=== PATIENT | male | born 1945 | race Caucasian/White ===

== ENCOUNTER 2018-12-04 10:17 | Day surgery (SDC) | payer OTHER ==
[~2018-12-04 10:17] MED LIST: Acetaminophen TAB* 325 MG PO PRN; Buffered Lidocaine 1% SYRIN* 1 ML/SYRINGE INTRADERM ONE
[2018-12-04] MEDS ORDERED: fentaNYL* 50 MCG/ML 2 ML VIAL (100 MCG VIAL) ONE (11:27)
[2018-12-04] MEDS ORDERED: Midazolam* 1 MG/ML 2 ML VIAL (2 MG) ONE (11:27)
[2018-12-04 12:35] VITALS: BP 118/64
--- NOTE | 2018-12-04 13:27 | OP ---
DATE OF OPERATION: 12/04/18 - [facility] DATE OF : 45. SURGEON: Ed Mogran MD. SWIMMING PROFESSOR: None. ANESTHESIA: Topical with intravenous sedation. PRE-OP DIAGNOSES: Pseudoexfoliation, glaucoma, right eye; cataract, right eye. POST-OP DIAGNOSES: Pseudoexfoliation, glaucoma, right eye; cataract, right eye. OPERATIVE PROCEDURE: Cataract extraction with posterior chamber intraocular lens implant and iStent implant, right eye. COMPLICATIONS: None. BLOOD LOSS: None. DESCRIPTION OF PROCEDURE: The patient was brought to the operating room and given a drop of tetracaine and some intravenous sedation. He was prepped and draped in the usual sterile fashion for ophthalmic surgery. Attention was directed to the right eye, where a speculum was placed. Despite appropriate preoperative eye drops, it was noted that his pupil only dilated to approximately 3 mm. Furthermore, pseudoexfoliation material could be seen coating the surface of the lens capsule. A paracentesis was created at the 11 o' clock position and 0.1 cc of 1% preservative- free lidocaine was injected into the anterior chamber followed by DisCoVisc. The eye was digitally stabilized while a 2.75-mm keratome was used to create a triplanar clear corneal incision at the 9 o'clock position. A Malyugin ring was placed to open the pupil. A continuous curvilinear capsulorrhexis measuring approximately 4 mm was created with a cystotome and Utrata forceps. BSS on a cannula was used to hydrodissect the lens from the capsule. Phacoemulsification was performed in a divide and conquer technique to create 4 fragments, which were removed. Omidria had been added to the irrigating solution. The intraocular pressure measurements on the machine were lowered to avoid dislocating the natural lens. After successful removing of these fragments, cortical removal was achieved using irrigation and aspiration. An AU00T0 18.5 diopter lens was inserted into the capsular bag. Supplemental DisCoVisc was placed to deepen the anterior chamber and coat the surface of the cornea. The patient's head was rotated away from the surgeon and the microscope was rotated towards the surgeon. A gonioprism was placed on the surface of the eye. Under direct visualization, an iStent was placed in the nasal aspect of the trabecular meshwork. The iStent ironworker helper shop and the gonioprism were removed. The patient's head and the microscope returned to the neutral position. DisCoVisc was them removed from posterior to the lens. Extra DisCoVisc was placed anterior to the lens. The Malyugin ring was removed atraumatically. The remainder of the viscoelastic was removed from the eye using irrigation and aspiration. The corneal stroma was hydrated with balanced saline solution. At the end of the case, the pupil was round. The lens was centered and stable. The eye pressure appeared normal. The eye appeared watertight and the iStent was in good position. The speculum was removed and topical Maxitrol ointment was placed on the surface of the eye. The eye was closed, patched, and shielded and the patient was sent to recovery room in stable condition with postop instructions and followup appointment given. [id number] #: [id number] MTDD
[2018-12-04] MEDS ORDERED: Cyclopentolate 1% OPTH.SOL* 2 ML BTL ONE (15:28)
[2018-12-04] MEDS ORDERED: Ketorolac 0.5% OPHTH (NF) 0.5 % 5 ML BTL ONE (15:28)
[2018-12-04] MEDS ORDERED: Tetracaine 0.5% OPTH.SOL 4 ML* 1 DROP BTL ONE (15:28)
[2018-12-04] MEDS ORDERED: Phenylephr/Ketorolac 1%/0.3% OPH DROP BTL ONE (15:28)
[2018-12-04] MEDS ORDERED: Phenylephrine 2.5% OPTH.SOL* 2 ML BTL ONE (15:28)
[2018-12-04] MEDS ORDERED: Lidocaine 1%* 5 ML VIAL ONE (15:28)
[2018-12-04] MEDS ORDERED: Neomycin/Polymy/Dex OPHTH.OIN* 3.5 GM ONE (15:28)
[2018-12-04] MEDS ORDERED: Tropicamide 1% OPTH.SOL* BTL ONE (15:28)
== END 2018-12-04 12:40 | disposition home or self-care (01) ==
LOC: OREAST 10:17
PROVIDERS: ATTEND Ophthalmology
DX: H25.041 Posterior subcapsular polar age-related cataract, right eye (principal); H40.1411 Capsular glaucoma with pseudoexfoliation of lens, right eye, mild stage; E78.00 Pure hypercholesterolemia, unspecified; I10 Essential (primary) hypertension
CPT/HCPCS: A9270-GY; C1783; C9447; J2250; J3010; V2632

== ENCOUNTER 2019-05-16 11:48 | Observation (INO) | payer MEDICARE, OTHER ==
--- NOTE | 2019-05-16 12:10 | ED ---
HPI Chest Pain - HPI Summary HPI Summary: A 73 y/o male presents to [facility] with a chief complaint of chest pain since last night. He said that it started out as a 1-2/10 in severity, which remained until this morning. At triage he rated his pain as a 6/10 in severity, but now he claims that his pain has gotten better. He says that he took NTG last night and this morning, and this morning he did not feel any relief. He says that deep breaths worsens his pain. His CP does not radiate. He says that his chest has some discomfort. Pt denies any fever, sweats, chills, erythema of eyes, sore throat, SOB, cough, abdominal pain, N/V, dysuria, hematuria, myalgia, edema , rash, or dizziness. He denies a Hx of PA, but has a Hx of HTN and HLD. He reports a FHx of HTN, CVA and DM, but denies any cardiac disease, aneurysm or blood clots in the lungs. He was prescribed NTG by Dr. Severino, saying that years ago he complained about chest discomfort. He has had a stress test a few years ago and says that it was normal. He denies having a cardiac catheterization done before. - History of Current Complaint Chief Complaint: EDChestPainROMI Time Seen by Provider: 05/16/19 12:02 Hx Obtained From: Patient Onset/Duration: Started Hours Ago, Still Present Timing: Constant, Lasting Hours Initial Severity: Mild Current Severity: Moderate Pain Intensity: 6 Pain Scale Used: 0-10 Numeric Chest Pain Location: Diffuse Chest Pain Radiates: No Character: Other: - discomfort Aggravating Factor(s): Deep Breaths Alleviating Factor(s): Nothing Associated Signs and Symptoms: Negative: Dizziness, Shortness of Breath, Fever, Chills, Diaphoresis, Nausea, Cough, Productive Cough, Nonproductive Cough, Vomiting, Edema - Allergy/Home Medications Allergies/Adverse Reactions: Allergies Allergy/AdvReac Type Severity Reaction Status Date / Time No Known Allergies Allergy Verified 12/04/18 10:59 Home Medications: Home Medications Aspirin [Aspirin EC] 81 mg PO DAILY 05/16/19 [History Confirmed 05/16/19] Dorzolamide HCl/Timolol Maleat [Cosopt 22.3-6.8 mg/ml] 1 drop BOTH EYES BID [History Confirmed 05/16/19] Metoprolol Succinate XL TAB* [Toprol XL TAB*] 25 mg PO BEDTIME 05/16/19 [ History Confirmed 05/16/19] PMH/Surg Hx/FS Hx/Imm Hx Endocrine/Hematology History: Denies: Hx Diabetes Cardiovascular History: Reports: Hx Hypertension, Other Cardiovascular Problems/ Disorders - MD PRESCRIBED NITRO BECAUSE PT.C/O CHEST PAIN, RARELY USES NO DIAGNOSIS Denies: Hx Congestive Heart Failure, Hx Pacemaker/ICD Musculoskeletal History: Reports: Hx Arthritis Sensory History: Reports: Hx Cataracts - PRESENTLY, Hx Contacts or Glasses - READING GLASSES, Hx Glaucoma Denies: Hx Hearing Aid Opthamlomology History: Reports: Hx Cataracts - PRESENTLY, Hx Contacts or Glasses - READING GLASSES, Hx Glaucoma Psychiatric History: Denies: Hx Panic Disorder - Surgical History Surgery Procedure, Year, and Place: DENTAL SURGERY. SURGERY ON RIGHT HAND FOR [facility] Hx Anesthesia Reactions: No - Immunization History Date of Tetanus Vaccine: Unk Date of Influenza Vaccine: None Infectious Disease History: No Infectious Disease History: Denies: Traveled Outside the [place] in Last 30 Days - Family History Known Family History: Positive: Hypertension, Diabetes, Other - positive: CVA Negative: Cardiac Disease - Social History Alcohol Use: Weekly Alcohol Amount: 2 glasses of wine Substance Use Type: Reports: None Smoking Status (MU): Never Smoked Tobacco Have You Smoked in the Last Year: No Review of Systems Negative: Fever, Chills, Skin Diaphoresis Negative: Erythema Negative: Sore Throat Positive: Chest Pain Negative: Shortness Of Breath, Cough Negative: Abdominal Pain, Vomiting, Nausea Negative: dysuria, hematuria Negative: Myalgia, Edema Negative: Rash Neurological: Negative - dizziness All Other Systems Reviewed And Are Negative: Yes Physical Exam - Summary Physical Exam Summary: Constitutional: Well-developed, Well-nourished, Alert. (-) Distressed Skin: Warm, Dry HENT: Normocephalic; Atraumatic Eyes: Conjunctiva normal Neck: Musculoskeletal ROM normal neck. (-) JVD, (-) Stridor, (-) Tracheal deviation Cardio: Rhythm regular, rate normal, Heart sounds normal; Intact distal pulses; The pedal pulses are 2+ and symmetric. Radial pulses are 2+ and symmetric. (-) Murmur Pulmonary/Chest wall: Effort normal. (-) Respiratory distress, (-) Wheezes, (-) Rales, there is no reproducible chest tenderness or pain. Abd: Soft, (-) tenderness, (-) Distension, (-) Guarding, (-) Rebound Musculoskeletal: (-) Edema Lymph: (-) Cervical adenopathy Neuro: Alert, Oriented x3 Psych: Mood and affect Normal Triage Information Reviewed: Yes Vital Signs On Initial Exam: Initial Vitals Temp Pulse Resp BP Pulse Ox 97.3 F 64 18 123/62 98 05/16/19 11:53 05/16/19 11:53 05/16/19 11:53 05/16/19 11:53 05/16/19 11:53 Vital Signs Reviewed: Yes Diagnostics - Vital Signs Vital Signs Temp Pulse Resp BP Pulse Ox 05/16/19 11:53 97.3 F 64 18 123/62 98 - Laboratory Result Diagrams: 05/16/19 12:05 05/16/19 12:05 Lab Statement: Any lab studies that have been ordered have been reviewed, and results considered in the medical decision making process. - Radiology CXR Radiology Interpretation Completed By: Radiologist Summary of Radiographic Findings: NO ACTIVE CARDIOPULMONARY DISEASE IS NOTED. ED physician has reviewed this imaging report. - EKG 11:52 Cardiac Rate: Bradycardia - 57 bpm EKG Rhythm: Sinus Bradycardia Summary of EKG Findings: EKG at 11:52 showed sinus bradycardia at 57 bpm, no STEMI. 13:14 Cardiac Rate: Bradycardia - 54 bpm EKG Rhythm: Sinus Bradycardia Summary of EKG Findings: EKG at 13:14 showed sinus bradycardia at 54 bpm, no STEMI. Re-Evaluation - Re-Evaluation First Eval Re-Evaluation Time: 13:23 Change: Improved Comment: Pt feels better and CP is resolved. Chest Pain Course/Dx - Course Course Of Treatment: A 73 y/o male presents to [facility] with a chief complaint of chest pain since last night. He said that it started out as a 1-2/10 in severity , which remained until this morning. At triage he rated his pain as a 6/10 in severity, but now he claims that his pain has gotten better. He says that he took NTG last night and this morning, and this morning he did not feel any relief. He says that deep breaths worsens his pain. His CP does not radiate. He says that his chest has some discomfort. Pt denies any fever, sweats, chills, erythema of eyes, sore throat, SOB, cough, abdominal pain, N/V, dysuria, hematuria, myalgia, edema, rash, or dizziness. He denies a Hx of PA, but has a Hx of HTN and HLD. He reports a FHx of HTN, CVA and DM, but denies any cardiac disease, aneurysm or blood clots in the lungs. He was prescribed NTG by Dr. Severino, saying that years ago he complained about chest discomfort. He has had a stress test a few years ago and says that it was normal. He denies having a cardiac catheterization done before. The physical exam revealed that there is no reproducible chest tenderness or pain. EKG at 11:52 showed sinus bradycardia at 57 bpm, no STEMI. EKG at 13:14 showed sinus bradycardia at 54 bpm, no STEMI. Blood work and chemistries obtained. Troponin of 0.00. CXR impression: NO ACTIVE CARDIOPULMONARY DISEASE IS NOTED. He has multiple cardiac risk factors and was prescribed NTG as an outpatient. This could represent unstable angina. He has never had a cardiac catheterization. Discussed case with Dr. Uriostegui, hospitalist, who accepted the patient for admission. The patient is agreeable with this plan. - Diagnoses Provider Diagnoses: Chest pain, unspecified - Provider Notifications Discussed Care Of Patient With: Altagracia Uriostegui Time Discussed With Above Provider: 13:21 Instructed by Provider To: Admit As Inpatient Discharge - Sign-Out/Discharge Documenting (check all that apply): Patient Departure - admit Patient Received Moderate/Deep Sedation with Procedure: No - Discharge Plan Condition: Fair Disposition: ADMITTED TO [facility] Referrals: Al Seveirno MD [Primary Care Provider] - - Attestation Statements Document Initiated by Scribe: Yes Documenting Scribe: Jaime Marshall Provider For Whom Scribe is Documenting (Include Credential): Frederick Coleman MD Scribe Attestation: Jaime Seymour, scribed for Frederick Coleman MD on 05/16/19 at 1336.
[2019-05-16 12:16] LABS: ABS Eosinophils 0.3 10^3/ul (0-0.6); ABS Lymphocytes 1.5 10^3/ul (1.0-4.8); ABS Monocytes 0.4 10^3/ul (0-0.8); Eosinophil % 6.2 %; Hematocrit 40 % (42-52); Hemoglobin 13.8 g/dL (14.0-18.0); Lymphocyte % 27.9 %; Mean Corpuscular HGB Conc 35 g/dL (31-36); Mean Corpuscular Hemoglobin 31 pg (27-31); Mean Corpuscular Volume 89 fL (80-94); Mean Platelet Volume 8.2 fL (7.4-10.4); Nucleated Red Blood Cells % 0.1; Platelet Count 133 10^3/uL (150-450); Red Blood Count 4.45 10^6 /uL (4.18-5.48); Red Cell Distribution Width 14 % (10-15); White Blood Count 5.2 10^3/uL (3.5-10.8)
[2019-05-16 12:37] LABS: INR 0.97 (0.82-1.09)
[2019-05-16] MEDS ORDERED: Aspirin 81 mg CHEW TAB* 81 MG TAB.CHEW PO ONE (12:37)
[2019-05-16] MEDS ORDERED: Nitroglycerin TAB 0.4 MG* 0.4 MG TAB SL ONE (12:37)
[2019-05-16 12:38] LABS: Albumin 3.8 g/dL (3.2-5.2); Albumin/Globulin Ratio 1.5 (1-3); Calcium 8.9 mg/dL (8.6-10.3); EGFR Non-African American 77.7 (>60); Globulin 2.6 g/dL (2-4); Potassium 3.8 mmol/L (3.5-5.0); Total Protein 6.4 g/dL (6.4-8.9)
[2019-05-16] MEDS ORDERED: Acetaminophen TAB* 325 MG PO PRN (14:11)
[2019-05-16] MEDS ORDERED: Nitroglycerin TAB 0.3 MG* 0.3 MG TAB SL PRN (14:16)
[2019-05-16] MEDS ORDERED: Enoxaparin(*) 40 MG/0.4 ML SYR SUBCUT SCH (15:00)
--- NOTE | 2019-05-16 15:35 | HP ---
CC: Dr. Severino * HISTORY AND PHYSICAL: DATE OF ADMISSION: 05/16/19 PRIMARY CARE PROVIDER: Dr. Severino. ATTENDING PHYSICIAN: Dr. Uriostegui * (dictated by UNIQUE Miller). CHIEF COMPLAINT: Chest pain. HISTORY OF PRESENT ILLNESS: Mr. James is a 73-year-old male with a past medical history of hypertension and hyperlipidemia who presented to the ER today with complaints of chest pain. The patient states that the chest pain began last night. He notes that he woke up in the middle of the night, went to the bathroom, walked back, sat on the edge of his bed, and then chest pain developed. He notes that it was strong in the beginning, but slowly decreased. He states that he took 1 nitro at the time, but does not know if it helped or not, although he does note that the pain started to decrease. He then fell asleep. He woke up this morning and continued to have a light dull pain in the center of the chest that did not radiate. He states that he took 1 nitro, then took 1 approximately 1 hour later. He states that this did not help. He does note that his chest pain is worse with deep breathing. During these episodes, the patient denies shortness of breath, diaphoresis, nausea, vomiting. He denies a history of recent cough, fevers, chills. He does note he has occasional sneezing. He notes that his chest pain is "almost gone now." He rates his pain as a 1-2/10. He notes that approximately 2 weeks ago he was working relatively vigorously in the yard, digging and other activities. While in the emergency department, the patient received a full workup including blood work which revealed a slight anemia, slight thrombocytopenia, and mildly elevated glucose. He had 2 EKGs with rate of 57 and 54 respectively, both normal sinus rhythm with no ST changes. Chest x-ray revealed no active cardiopulmonary disease. The patient was also given aspirin 81 and nitro 0.4 sublingual x1 in the ER. Hospitalist team was asked to evaluate the patient for admission. PAST MEDICAL HISTORY: 1. Hypertension. 2. Hyperlipidemia. 3. Glaucoma. 4. Cataracts. PAST SURGICAL HISTORY: Right eye cataract. HOME MEDICATIONS: 1. Aspirin 81 mg p.o. daily. 2. Atorvastatin 10 mg p.o. at 2100. 3. Cosopt 22.3/6.8 one drop both eyes b.i.d. 4. Xalatan 0.005% one drop to the left eye at 1700. 5. Zestoretic 10/12.5 one tab p.o. q.p.m. 6. Metoprolol succinate XL 25 mg p.o. at bedtime. 7. Nitro 0.3 sublingual p.r.n. chest pain. DRUG ALLERGIES: The patient states that he is allergic to some antibiotic, he believes that it is DOXYCYCLINE. He notes that he developed a rash after use of the antibiotic. FAMILY HISTORY: Father, sister had hypertension. Sister had diabetes mellitus. Sister and mother had CVA. No family history of cancer. SOCIAL HISTORY: The patient denies current and former use of tobacco products. He drinks alcohol weekly, but not daily. He does not use any other drugs. 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 He lives with his . In the event that he is unable to make his own medical decisions, he has appointed his , Rylee James, to be his surrogate decision maker. REVIEW OF SYSTEMS: A 10-point review of systems has been performed and all the pertinent positives and negatives are in the HPI. All other systems are negative. PHYSICAL EXAMINATION GENERAL: Mr. James is a 73-year-old male, who is well developed, well nourished. He is sitting up in bed. He appears comfortable. He is pleasant and cooperative. He is in no acute distress. VITAL SIGNS: Temperature 97.3, heart rate 53, respiratory rate 15, oxygen saturation 95%, blood pressure 101/62. HEENT: PERRL. EOMI. Nonicteric sclerae. Hearing grossly intact. Good dentition. Oral mucous membranes are moist. The pharynx is clear. Normocephalic, atraumatic. RESPIRATORY: Symmetrical chest expansion without use of accessory muscles. Lungs are clear to auscultation bilaterally without rhonchi, wheeze, or rubs. CARDIOVASCULAR: Bradycardic, regular rhythm. S1, S2 present without murmurs, rubs, clicks, or gallops. There is no JVD. ABDOMEN: Flat. Bowel sounds in all quadrants. The abdomen is soft. There is no tenderness to palpation. There is no hepatosplenomegaly. MUSCULOSKELETAL: Full range of motion without pain or deformities. EXTREMITIES: Skin warm and smooth bilaterally without clubbing or cyanosis. There is bilateral lower extremity 1+ pitting edema. NEURO: The patient is awake. He is alert and oriented x3. No focal neurological deficits. He is able to move all of his extremities. DIAGNOSTIC STUDIES/LAB DATA: HGB 13.8, HCT 40, platelets 133; otherwise, CBC within normal limits. D-dimer less than 200. CMP within normal limits except glucose 120. Troponin negative x1. EKG: Rate 57, normal sinus rhythm without ST changes; rate 54, normal sinus rhythm without ST changes. Chest x-ray negative for cardiopulmonary disease. ASSESSMENT AND PLAN: Mr. James is a 73-year-old male with a past medical history of hypertension and hyperlipidemia, who presented to the ER today with complaints of chest pain. He was admitted observation for chest pain , rule out acute coronary syndrome. 1. Chest pain, rule out acute coronary syndrome. The patient has chest pain in the center of the chest without radiation that began last night. Nitro appears not to have relieved his pain. Currently, his pain has decreased. He will be admitted observation on the tele unit. He will continue aspirin 81 mg daily. Troponin negative x1, we will repeat x3. Hemoglobin A1c and lipid panel have been ordered. The patient will have an EKG in the a.m. Echo has been ordered due to lower extremity edema. Exercise stress test has also been ordered. 2. Hypertension. Continue lisinopril/HCTZ in the a.m., metoprolol XL in the evening with hold parameters. 3. Hyperlipidemia. Continue atorvastatin. 4. Glaucoma. Continue home eye drops. 5. DVT prophylaxis: According to the DVT Risk Assessment, the patient scores 2 , placing him at moderate risk. He will be started on Lovenox. 6. Code status: Full code. 7. FEN: The patient is euvolemic. We will hold fluids. Heart-healthy diet, caffeine okay with n.p.o. after midnight for stress testing. TIME SPENT: Approximately 60 minutes was spent on this admission, greater than half that time was spent with the patient and his obtaining history, performing physical, and reviewing the plan of care. The case has been reviewed with my attending, Dr. Uriostegui, who is in agreement with the plan of care. UNIQUE COREAS [id number]/[facility] #: [id number] [facility] MEDICAL CENTERMarilee
--- NOTE | 2019-05-16 16:54 | ECHO ---
*[facility]* [place] [address] Fax #: [phone] Transthoracic Echocardiogram Patient: Vikash James : 1945 Study Date: 05/16/2019 Age: 73 Gender: M HR: 57 bpm Height: 70 in /177.8 cm BSA: 2.09 m^2 Weight: 199.6 lb /90.7 kg BMI: 28.7 kg/m^2 *Adjunct Communications Faculty Member: * Shwetha Rodriguez [facility] *Referring Physician: * Jacqueline McwilliamsReading Physician: * Molina Chase MD Indications: Edema. History: Cerebrovascular accident. Risk factors: Hypertension. Diabetes mellitus. Conclusions Summary: 1. Left ventricle: The cavity size is normal. Wall thickness is mildly increased. Systolic function is normal. The estimated ejection fraction is 50-55%. 2. Left atrium: The atrium is mildly dilated. 3. Mitral valve: There is mild regurgitation. 4. Aortic valve: There is mild regurgitation. 5. No previous echocardiogram available. Study data: Transthoracic echocardiogram. Procedure: Transthoracic echocardiography was performed. Image quality was good. Complete 2D, spectral Doppler, and color flow Doppler. Location: Emergency department. Patient status: Inpatient. Patient room number: 5. Rhythm: Bradycardia. Findings Left ventricle: The cavity size is normal. Wall thickness is mildly increased. Systolic function is normal. The estimated ejection fraction is 50-55%. Wall motion is normal; there are no regional wall motion abnormalities. There is no consistent Doppler evidence of clinically significant diastolic dysfunction. Right ventricle: The cavity size is normal. Systolic function is normal. Left atrium: The atrium is mildly dilated. Right atrium: The atrium is normal in size. Mitral valve: The valve is structurally normal. There is no evidence of stenosis. There is mild regurgitation. Aortic valve: The valve is structurally normal. The valve is trileaflet. Cusp separation is normal. Transvalvular velocity is within the normal range. There is no evidence of stenosis. There is mild regurgitation. Tricuspid valve: The valve is structurally normal. There is no evidence of stenosis. There is trivial regurgitation. Pulmonic valve: The leaflets are normal thickness. There is no evidence of stenosis. There is trivial regurgitation. Aorta: Aortic root: The aortic root is appears normal. Ascending aorta: The ascending aorta is appears normal. Aortic arch: The aortic arch is appears normal. Pericardium: There is no significant pericardial effusion. Pulmonary arteries: The main pulmonary artery is normal-sized. Systolic pressure can not be accurately estimated. Systemic veins: Inferior vena cava: Not well visualized. Measurements Left ventricle Value Ref Aortic valve continued Value Ref KOBY, LAX 4.2 cm 4.2 - 5.8 Peak v, S 1.26 m/sec ---- ESD, LAX 2.6 cm 2.5 - 4.0 VTI, S 30.3 cm ---- FS, LAX 40 % 25 - 43 Mean grad, S 4.0 mm Hg ---- PW, ED, LAX 1.0 cm 0.6 - 1.0 Peak grad, S 6.0 mm Hg ---- EF 71 % 52 - 72 AR peak v 4.02 m/sec ---- E', lat sharon, TDI (L) 9.9 cm/sec >=10.0 AR PHT 817 ms -- -- E/e', lat sharon, 7 AR peak grad 65 mm Hg ---- TDI E', med sharon, TDI 8.2 cm/sec >=7.0 Mitral valve Value Re f E/e', med sharon, 8 Peak E 0.65 m/sec ---- TDI Peak A 0.52 m/sec ---- E', avg, TDI 9.1 cm/sec Decel time 187 ms ---- E/e', avg, TDI 7 <=14 Peak E/A ratio 1.3 -- -- LVOT Value Ref Pulmonic valve Value Ref Peak maddie, S 0.94 m/sec Peak v, S 0.5 m/sec ---- Mean grad, S 2 mm Hg Peak grad, S 1.0 mm Hg ---- Ventricular septum Value Ref Aortic root Value Ref IVS, ED (H) 1.2 cm 0.6 - 1.0 Root diam 3.5 cm <4.2 Right ventricle Value Ref Ascending aorta Value Ref KOBY, LAX 2.8 cm AAo AP diam, S 3.5 cm ---- KOBY minor ax, A4C 3.2 cm 1.9 - 3.5 mid Aortic arch Value Ref Arch diam 3.2 cm ---- Left atrium Value Ref AP dim, ES (H) 4.20 cm 3.00 - Decending aorta Value Ref 4.00 [place] peak maddie 0.79 m/sec ---- ML dim, A4C 4.3 cm SI dim, A4C 5.3 cm Pulmonary veins Value Ref Vol/bsa, ES, A/L (H) 39 ml/m^2 16 - 34 Peak v, S 0.51 m/sec ---- Peak v, D 0.37 m/sec ---- Right atrium Value Ref Peak S/D ratio 1.4 ---- SI dim, ES 5.1 cm 3.4 - 5.3 A rev duration 145 ms ---- ML dim, ES, A4C 3.5 cm 2.6 - 4.4 Estimated RAP 8 mm Hg Aortic valve Value Ref Sharon diam, ED 2.0 cm Legend: (L) and (H) becky values outside specified reference range. Prepared and electronically signed by Molina Chase MD 05/16/2019 16:48
[2019-05-16] MEDS ORDERED: Latanoprost 0.005%* 2.5 ml BTL LEFT EYE SCH (17:00)
[2019-05-16] MEDS: CMCS: Dorzolamide/Timolol OPTH (NF) 10 ML BOT BOTH EYES SCH (20:43)
[2019-05-16] MEDS ORDERED: Atorvastatin* 10 MG TAB PO SCH (21:00)
[2019-05-16] MEDS ORDERED: Lisinopril/HCTZ 10/12.5(NF) TAB PO SCH (21:00)
[2019-05-16] MEDS ORDERED: Metoprolol Succinate XL TAB* 25 MG PO SCH ×2 (21:00)
[2019-05-17 05:56] LABS: HDL Cholesterol 50.5 mg/dL
[2019-05-17] MEDS: CMCS: Dorzolamide/Timolol OPTH (NF) 10 ML BOT BOTH EYES SCH (08:51)
[2019-05-17] MEDS ORDERED: Lisinopril TAB* 10 MG PO SCH (09:00)
[2019-05-17] MEDS ORDERED: Aspirin EC TAB* 81 MG TAB.EC PO SCH (09:00)
[2019-05-17] MEDS ORDERED: Hydrochlorothiazide TAB* 25 MG PO SCH (09:00)
[2019-05-17 13:38] VITALS: BP 114/66
--- NOTE | 2019-05-17 22:45 | DS ---
CC: Dr. Severino * DISCHARGE SUMMARY: DATE OF ADMISSION: 05/16/19 DATE OF DISCHARGE: 05/17/19 PRIMARY CARE PROVIDER: Dr. Severino ATTENDING PHYSICIAN: Dr. [email or web address] * (dictated by UNIQUE Miller) PRIMARY DIAGNOSES: 1. Chest pain, acute coronary syndrome ruled out. 2. Possible costochondritis. SECONDARY DIAGNOSES: 1. Hypertension. 2. Hyperlipidemia. 3. Glaucoma. 4. Cataracts. STUDIES WHILE IN THE HOSPITAL: Transthoracic echocardiogram, impression: Left ventricle: The cavity size is normal. Wall thickness is mildly increased. Systolic function is normal. The estimated ejection fraction is 50% to 55%. Left atrium: The atrium is mildly dilated. Mitral valve: There is mild regurgitation. Aortic valve: There is mild regurgitation. Exercise stress test, results: [place] exercise stress test. Ventricular ectopy, bradycardia. DISCHARGE MEDICATIONS: Home Medications: 1. Aspirin 81 mg p.o. daily. 2. Atorvastatin 10 mg p.o. at 2100. 3. Cosopt eye drops 1 drop to both eyes b.i.d. 4. Xalatan 0.005% one drop to the left eye at 1700. 5. Lisinopril/HCTZ 08/10.5 one tab p.o. q.p.m. 6. Metoprolol succinate XL 25 mg p.o. at bedtime. 7. Nitroglycerin 0.3 sublingual p.r.n. chest pain. [place] Medications: None. HISTORY OF PRESENT ILLNESS/HOSPITAL COURSE: Mr. James is a 73-year-old male with a past medical history of hypertension and hyperlipidemia, who presented to the ER yesterday with complaints of chest pain that began the night prior. He states he woke up in the middle of the night, walked to and from the bathroom, sat back on his bed and chest pain developed. He states it was intense and then decreased. He took a nitro and fell asleep. When he awoke the following morning, he continued to have a light dull pain that was located in the center of his chest. He notes that this did not radiate. He took 2 nitro that morning which did not relieve the pain, so he came to the ER. He notes that chest pain was worsened by deep inhalation. In the emergency department, the patient had 2 EKGs that revealed no ST changes. He was given aspirin and sublingual nitro. He was admitted for further cardiac workup. Echocardiogram was within normal limits. Stress test was benign. The patient had troponin x3 at 0.00. LDL was noted to be 77. D-dimer was negative. The patient was admitted on tele and was noted to be bradycardiac throughout his stay. On the day of admission, the patient states that his chest pain was relieved some time yesterday. He is chest pain free, now. He has no pain with deep breathing. He notes that he had no pain with his stress test and he had no difficulty completing the tasks. He denies chest pain, shortness of breath, dizziness, lightheadedness, diaphoresis, headache, vision changes. He denies abdominal pain, nausea, vomiting, diarrhea, constipation. He denies pain, swelling, weakness, numbness, and tingling in the extremities. Mr. James is stable for discharge. PHYSICAL EXAMINATION: Vital signs are temperature 97.6 oral, heart rate 58, respiratory rate 16, oxygen saturation 96% on room air, blood pressure 114/66. General: Mr. James is a well-developed, well-nourished older overweight white male who is standing in his room. He is in no acute distress. He is eager to be discharged and feeling well. He is cooperative, appropriate and pleasant. HEENT: Normocephalic, atraumatic with extraocular movements intact. PERRL. Hearing grossly intact. Oral mucous membranes are moist. Cardiovascular: Bradycardiac. Rate regular rhythm. S1, S2 present without murmurs, rubs, clicks, or gallops. Respiratory: Symmetrical chest expansion without use of accessory muscles. Lungs are clear to auscultation bilaterally without rhonchi, wheeze or rubs. Abdomen: Flat. Bowel sounds noted in all quadrants. There is no tenderness to palpation. Musculoskeletal: No pain or deformities. Full range of motion. Extremities: Skin is warm and smooth bilaterally. There is no clubbing, cyanosis. There is trace edema in the bilateral lower extremities. Neuro: The patient is awake. He is alert and oriented x3. He is able to move all his extremities with motor strength at 5/5 in upper and lower bilaterally. Steady gait with no impairments. Cranial Nerves: No focal neurological deficits. DISCHARGE PLAN: Mr. James will be discharged home. Condition: Good. Diet: Heart healthy. Medications: No changes. EDUCATION: 1. Follow up with primary care provider in 4 to 7 days to discuss recent hospitalization and lab results. 2. Return to the ER or nearest hospital if you experience any worsening of symptoms, chest pain/pressure, shortness of breath, dizziness, lightheadedness, loss of consciousness, high fevers, chills, night sweats, or any other worrisome signs or symptoms. This is a summarized report of a complex medical history and hospital stay. For further details, please see the entire medical record. TIME SPENT: Approximately 35 minutes were spent on this discharge, greater than half that time was spent [id number] with the patient discussing discharge plans and instructions. UNIQUE COREAS [id number]/CPS #: [id number] SUGEY
== END 2019-05-17 15:32 ==
LOC: ED 11:48 → MEDTELE 14:11
PROVIDERS: ADMIT Internal Medicine; ATTEND Internal Medicine
DX: R07.9 Chest pain, unspecified (principal); I10 Essential (primary) hypertension; I34.0 Nonrheumatic mitral (valve) insufficiency; I35.1 Nonrheumatic aortic (valve) insufficiency; E78.5 Hyperlipidemia, unspecified; H40.9 Unspecified glaucoma; H26.9 Unspecified cataract; Z79.82 Long term (current) use of aspirin; Z79.899 Other long term (current) drug therapy; R53.83 Other fatigue
CPT/HCPCS: 36415; 71045; 80053; 80061; 83036; 84484; 85025; 85379; 85610; 93005; 93017; 93306; 96372; 99285; A9270-GY; G0378; J1650